=== PATIENT | male | born 1980 | race Caucasian/White ===

== ENCOUNTER 2021-04-17 12:58 | Emergency (ER) | payer OTHER ==
[~2021-04-17 12:58] MED LIST: BENTYL 20MG TAB20 MG PO; IBUPROFEN600 MG PO; ZOFRAN ODT 4 MG4 MG SL
[2021-04-17 13:58] LABS: HEMOGLOBIN 15.6 gm/dl (14.0-17.5); RED BLOOD COUNT 5.47 M/UL (4.20-5.50); WHITE BLOOD COUNT 8.2 K/UL (4.5-11.0)
[2021-04-17 14:30] LABS: BUN/CREATININE RATIO 13 (0-10)
== END 2021-04-17 16:10 | disposition home or self-care (01) ==
LOC: ER1 12:58
PROVIDERS: Physician Assistant
DX: M54.5 Low back pain (principal); M54.2 Cervicalgia; R30.0 Dysuria; Z86.69 Personal history of other diseases of the nervous system and sense organs; Z90.89 Acquired absence of other organs; Z88.6 Allergy status to analgesic agent
CPT/HCPCS: 80053; 81001; 85025; 96374; 96375; 99283; J1200; J2270; J2405; J2765; J2930

== ENCOUNTER → 2021-04-26 | Outpatient (CLI) | payer OTHER ==
[2021-04-26 12:59] LABS: HEMOGLOBIN 15.1 gm/dl (14.0-17.5); RED BLOOD COUNT 5.31 M/UL (4.20-5.50); WHITE BLOOD COUNT 6.9 K/UL (4.5-11.0)
[2021-04-26 13:31] LABS: BUN/CREATININE RATIO 10 (0-10)
[2021-04-27 08:14] LABS: THYROXINE (T4) 4.9 ug/dL (4.5-12.0); VITAMIN D, 25-HYDROXY 10.7 ng/mL (30.0-100.0)
== END ==
LOC: LAB 11:44
PROVIDERS: Nurse Practitioner Family
DX: G35 Multiple sclerosis (principal); M54.5 Low back pain; R53.82 Chronic fatigue, unspecified; R56.9 Unspecified convulsions
CPT/HCPCS: 36415; 80053; 80061; 81001; 82607; 84436; 84443; 84480; 85025

== ENCOUNTER → 2021-07-23 | Outpatient (CLI) | payer OTHER ==
[2021-07-23 16:46] LABS: HEMOGLOBIN 15.2 gm/dl (14.0-17.5); RED BLOOD COUNT 5.42 M/UL (4.20-5.50); WHITE BLOOD COUNT 6.4 K/UL (4.5-11.0)
[2021-07-23 17:38] LABS: BUN/CREATININE RATIO 8 (0-10)
== END ==
LOC: LAB 16:09
PROVIDERS: Nurse Practitioner Family
DX: E55.9 Vitamin D deficiency, unspecified (principal); R53.82 Chronic fatigue, unspecified
CPT/HCPCS: 80053; 85025

== ENCOUNTER → 2021-08-13 | Outpatient (CLI) | payer OTHER | LOC: HEART 5 07-18 09:00 → EXRD 07-18 09:00 → HEART 5 07:36 | DX: R07.9 Chest pain, unspecified (principal); R06.02 Shortness of breath; I73.9 Peripheral vascular disease, unspecified | CPT/HCPCS: 78452; 93306; 93926; A9502; J2785 ==

== ENCOUNTER 2021-11-30 18:45 | Emergency (ER) | payer BC, OTHER ==
[2021-11-30] MEDS ORDERED: BENZONATATE200 MG PO (21:04)
== END 2021-11-30 21:11 | disposition home or self-care (01) ==
LOC: ER1 18:45
DX: J06.9 Acute upper respiratory infection, unspecified (principal); K21.9 Gastro-esophageal reflux disease without esophagitis; Z88.8 Allergy status to other drugs, medicaments and biological substances; Z20.822 Contact with and (suspected) exposure to COVID-19
CPT/HCPCS: 71045; 99283; U0002

== ENCOUNTER → 2022-01-02 | Outpatient (CLI) | payer BC, OTHER ==
[~2022-01-02] MED LIST changes: +BENZONATATE200 MG PO
== END ==
LOC: EXRD 08:48
DX: R79.89 Other specified abnormal findings of blood chemistry (principal); K76.0 Fatty (change of) liver, not elsewhere classified
CPT/HCPCS: 76700

== ENCOUNTER → 2022-01-29 | Outpatient (CLI) | payer BC, OTHER | LOC: EXRD 14:04 | DX: R07.9 Chest pain, unspecified (principal); R06.02 Shortness of breath; M54.2 Cervicalgia; R10.9 Unspecified abdominal pain; M47.22 Other spondylosis with radiculopathy, cervical region | CPT/HCPCS: 71046; 72040; 72100; 74018 ==

== ENCOUNTER → 2022-02-19 | Outpatient (CLI) | payer BC, OTHER ==
[2022-02-19 16:50] LABS: BUN/CREATININE RATIO 7 (0-10)
== END ==
LOC: LAB 16:11
PROVIDERS: Nurse Practitioner Family
DX: M10.9 Gout, unspecified (principal)
CPT/HCPCS: 36415; 80048; 84550

== ENCOUNTER → 2022-05-05 | Outpatient (CLI) | payer BC, OTHER | LOC: RAD 16:54 | DX: R07.9 Chest pain, unspecified (principal); R06.02 Shortness of breath | CPT/HCPCS: 71046 ==

== ENCOUNTER → 2022-05-13 | Outpatient (CLI) | payer BC, OTHER | LOC: MRI 16:01 | DX: G35 Multiple sclerosis (principal); H53.133 Sudden visual loss, bilateral | CPT/HCPCS: 70543; 70553; A9577 ==

== ENCOUNTER 2022-06-16 16:31 | Emergency (ER) | payer BC, OTHER ==
[2022-06-16 22:27] LABS: HEMOGLOBIN 15.4 gm/dl (14.0-17.5); RED BLOOD COUNT 5.5 M/UL (4.20-5.50)
[2022-06-16 23:09] LABS: BUN/CREATININE RATIO 10 (0-10)
== END 2022-06-17 01:33 | disposition home or self-care (01) ==
LOC: ER1 16:31
PROVIDERS: Family Medicine
DX: R51.9 Headache, unspecified (principal); R07.9 Chest pain, unspecified; R10.9 Unspecified abdominal pain; E78.5 Hyperlipidemia, unspecified; Z95.1 Presence of aortocoronary bypass graft; Z79.899 Other long term (current) drug therapy; Z88.6 Allergy status to analgesic agent
CPT/HCPCS: 70450; 80053; 82550; 82553; 83690; 84484; 85025; 93005; 99285

== ENCOUNTER → 2022-07-12 | Outpatient (CLI) | payer BC, OTHER ==
[2022-07-12 10:28] LABS: RED BLOOD COUNT 5.28 M/UL (4.20-5.50); WHITE BLOOD COUNT 6.4 K/UL (4.5-11.0)
[2022-07-12 10:54] LABS: BUN/CREATININE RATIO 12 (0-10)
[2022-07-13 06:43] LABS: CREATININE, URINE 119.6 mg/dL (Not Estab.)
[2022-07-13 07:08] LABS: VITAMIN D, 25-HYDROXY 16.2 ng/mL (30.0-100.0)
[2022-07-14 23:12] LABS: THYROGLOBULIN ANTIBODY 1.5 IU/mL (0.0-0.9)
== END ==
LOC: LAB 09:45
PROVIDERS: Nurse Practitioner Family
DX: Z00.00 Encounter for general adult medical examination without abnormal findings (principal); R73.9 Hyperglycemia, unspecified; M10.9 Gout, unspecified; G43.909 Migraine, unspecified, not intractable, without status migrainosus; I10 Essential (primary) hypertension; E78.00 Pure hypercholesterolemia, unspecified; R13.10 Dysphagia, unspecified; E53.8 Deficiency of other specified B group vitamins; R53.83 Other fatigue; E55.9 Vitamin D deficiency, unspecified; N41.0 Acute prostatitis; E79.0 Hyperuricemia without signs of inflammatory arthritis and tophaceous disease
CPT/HCPCS: 80053; 80061; 81001; 82043; 82570; 82607; 83036; 84439; 84443; 84550; 85025; 86376; 86800